=== PATIENT | female | born 1985 | race Caucasian/White ===

== ENCOUNTER 2016-08-05 18:39 | Emergency (ER) | payer MEDICAID ==
[2012-07-26 10:57] VITALS: BMI 26.6
[2016-08-05 19:21] LABS: BASOPHILS 0.3 % (0.0-2.0); HEMATOCRIT 31.7 % (36.0-48.0); IMMATURE GRANULOCYTES 0.4 % (0-5); LYMPHOCYTES 29.6 % (15-50); MCH 32.5 pg (26.0-34.0); MCHC 34.7 g/dL (31.0-37.0); MCV 93.8 fL (80.0-100.0); MEAN PLATELET VOLUME 9.4 fL (7.4-10.4); NEUTROPHILS 63.7 % (40-80); PLATELET COUNT 193 10x3/uL (130-400); RBC 3.38 10x6/uL (4.00-5.40); RDW 12.6 % (11.5-14.5)
[2016-08-05 19:24] LABS: APPEARANCE HAZY (CLEAR); BILIRUBIN NEGATIVE (NEGATIVE); COLOR YELLOW (YELLOW); GLUCOSE NEGATIVE (NEGATIVE); KETONE SMALL mg/dL (NEGATIVE); LEUKOCYTE ESTERASE TRACE (NEGATIVE); NITRITE NEGATIVE (NEGATIVE); PROTEIN NEGATIVE (NEGATIVE); UROBILINOGEN NORMAL (NORMAL)
[2016-08-05 19:31] LABS: BACTERIA MODERATE /hpf (NONE SEEN); EPITHELIAL CELLS 0-5 /hpf (0-5); RED CELLS - URINE 0-5 /hpf (0-5); WHITE CELLS - URINE 0-5 /hpf (0-5)
[2016-08-05 19:31] LABS: ALBUMIN 3.1 g/dL (3.4-5.0); ALKALINE PHOSPHATASE 43 U/L (46-116); ALT (SGPT) 23 U/L (10-68); BILIRUBIN - TOTAL 0.36 mg/dL (0.2-1.3); CALC OSMOLALITY 276 mosm/kg (275-300); CARBON DIOXIDE 27.3 mmol/L (21.0-32.0); CHLORIDE - SERUM 105 mmol/L (98-107); CREATININE - SERUM 0.6 mg/dL (0.6-1.3); GLUCOSE 91 mg/dL (74-106); POTASSIUM - SERUM 3.5 mmol/L (3.5-5.1); PROTEIN - SERUM 6.4 g/dL (6.4-8.2); SODIUM 140 mmol/L (136-145); UREA NITROGEN 8 mg/dL (7-18); eGFR NON AFRICAN AMERICAN > 90 mL/min (90-120)
== END 2016-08-05 21:35 | disposition home or self-care (01) ==
LOC: D.ER 18:39
PROVIDERS: Family Medicine
DX: R10.2 Pelvic and perineal pain (principal); F17.200 Nicotine dependence, unspecified, uncomplicated

== ENCOUNTER → 2016-12-07 09:21 | Outpatient (CLI) | payer MEDICAID ==
[2012-07-26 10:57] VITALS: BMI 26.6
[2016-12-07 10:12] LABS: APPEARANCE HAZY (CLEAR); BILIRUBIN NEGATIVE (NEGATIVE); COLOR YELLOW (YELLOW); GLUCOSE NEGATIVE (NEGATIVE); KETONE NEGATIVE (NEGATIVE); LEUKOCYTE ESTERASE 1+ (NEGATIVE); NITRITE NEGATIVE (NEGATIVE); PROTEIN NEGATIVE (NEGATIVE); UROBILINOGEN NORMAL (NORMAL)
[2016-12-07 10:13] LABS: BACTERIA FEW /hpf (NONE SEEN); MUCUS <1+ /lpf (NONE SEEN); RED CELLS - URINE OCC /hpf (0-5)
== END | disposition home or self-care (01) ==
LOC: D.LDO 09:21
PROVIDERS: Obstetrics & Gynecology
DX: Z34.93 Encounter for supervision of normal pregnancy, unspecified, third trimester (principal); Z3A.35 35 weeks gestation of pregnancy

== ENCOUNTER → 2016-12-15 10:16 | Outpatient (CLI) | payer MEDICAID ==
[2012-07-26 10:57] VITALS: BMI 26.6
== END | disposition home or self-care (01) ==
LOC: D.LDO 10:16
DX: O36.8130 Decreased fetal movements, third trimester, not applicable or unspecified (principal); Z3A.36 36 weeks gestation of pregnancy

== ENCOUNTER → 2016-12-22 09:42 | Outpatient (CLI) | payer MEDICAID ==
[2012-07-26 10:57] VITALS: BMI 26.6
== END | disposition home or self-care (01) ==
LOC: D.LDO 09:42
DX: Z34.93 Encounter for supervision of normal pregnancy, unspecified, third trimester (principal); Z3A.37 37 weeks gestation of pregnancy

== ENCOUNTER → 2016-12-26 09:05 | Outpatient (CLI) | payer MEDICAID ==
[2012-07-26 10:57] VITALS: BMI 26.6
== END | disposition home or self-care (01) ==
LOC: D.LDO 09:05
DX: O36.8130 Decreased fetal movements, third trimester, not applicable or unspecified (principal); Z3A.37 37 weeks gestation of pregnancy

== ENCOUNTER 2016-12-28 07:13 | Inpatient (IN) | payer MEDICAID ==
[~2016-12-28] VITALS: Ht 172.7 cm; Wt 85.5 kg
[2016-12-28 08:13] LABS: UDS - AMPHET NEGATIVE QUAL (NEGATIVE); UDS - BARB NEGATIVE QUAL (NEGATIVE); UDS - BENZO NEGATIVE QUAL (NEGATIVE); UDS - COCAINE NEGATIVE QUAL (NEGATIVE); UDS - METH NEGATIVE QUAL (NEGATIVE); UDS - OPIATE NEGATIVE QUAL (NEGATIVE); UDS - PCP NEGATIVE QUAL (NEGATIVE); UDS - THC NEGATIVE QUAL (NEGATIVE)
[2016-12-28 08:23] LABS: APPEARANCE TURBID (CLEAR); BILIRUBIN NEGATIVE (NEGATIVE); COLOR YELLOW (YELLOW); GLUCOSE NEGATIVE (NEGATIVE); KETONE NEGATIVE (NEGATIVE); LEUKOCYTE ESTERASE 1+ (NEGATIVE); NITRITE NEGATIVE (NEGATIVE); PROTEIN NEGATIVE (NEGATIVE); SPECIFIC GRAVITY 1.015 (1.005-1.020); UROBILINOGEN NORMAL (NORMAL)
[2016-12-28 08:24] LABS: BACTERIA MODERATE /hpf (NONE SEEN); MUCUS >1+ /lpf (NONE SEEN); RED CELLS - URINE RARE /hpf (0-5)
[2016-12-28 09:58] LABS: HEMATOCRIT 32.4 % (36.0-48.0); MCH 31.8 pg (26.0-34.0); MCV 93.6 fL (80.0-100.0); MEAN PLATELET VOLUME 10.3 fL (7.4-10.4); RBC 3.46 10x6/uL (4.00-5.40); RDW 12.6 % (11.5-14.5); WBC 12.2 10x3/uL (4.8-10.8)
[2016-12-28 12:49] VITALS: BP 112/66; Ht 172.7 cm; Wt 85.5 kg
[2016-12-28 19:00] VITALS: BP 115/64
--- NOTE | 2016-12-28 22:19 | NUR ---
PT OFF MONITOR, UP TO BATHROOM. VOIDS LARGE AMOUNT WITH NO CLOTS NOTED. CLEAN GOWN, PANTIES, PERIPADS PROVIDED. PERICARE TEACHING WITH BETADINE AND WATER, WITH RETURN DEMONSTRATION DONE. PT UP TO W/C TO TRANSFER TO ROOM 1257 AT THIS TIME. TRANSPORTED VIA OPEN CRIB PER THIS RN.
--- NOTE | 2016-12-28 22:39 | NUR ---
PT FAMILY TO NURSE DESK REQUESTS SOAP TO SHOWER. SAME PROVIDED. PT CURRENTLY AND DENIES NEEDS AT THIS TIME.
--- NOTE | 2016-12-28 23:14 | NUR ---
INFANT TRANSPORTED VIA OPEN CRIB TO N FOR VS AND BLOOD SUGAR CHECK. PT REQUESTS BE BROUGHT BACK BECKA. ADV PT WOULD DO THE SAME. PT DENIES NEEDS AT THIS TIME.
[2016-12-29] VITALS (7 sets, daily range): BP systolic 111–124; BP diastolic 64–77
--- NOTE | 2016-12-29 00:12 | NUR ---
PERCOCET 5/325X1 TAB AND MOTRIN 600MG X1 TAB GIVEN PER PT REQUEST FOR PAIN RATED 6/10 AT THIS TIME. PLACED IN OPEN CRIB PER THIS RN. PT DENIES FURTHER NEEDS. BED LOW, WHEELS LOCKED, CL IN REACH, SIDE RAILS UP X2.
--- NOTE | 2016-12-29 00:56 | NUR ---
PAIN REASSESSMENT COMPLETE. PT RATES PAIN 6/10 EVEN AFTER MEDICATION. PT REPORTS PAIN IN BACK WELL "PERIOD CRAMPS." ADV PT THAT CRAMPING IS NORMAL AFTER DELIVERY AND WORSENS WITH . PT VERBALIZED UNDERSTANDING. PT SITTING UP IN BED WITH UP ON PILLOWS BONDING. PT DENIES FURTHER NEEDS AT THIS TIME.
--- NOTE | 2016-12-29 02:56 | NUR ---
ROUNDS MADE. PT LYING ON LT SIDE. PT'S DAUGHTER ASLEEP ON BEDSIDE CHAIR. PT'S EYES CLOSED, RESP EVEN & UNLABORED. PT LEFT UNDISTURBED AT THIS TIME.
[2016-12-29 04:31] LABS: BASOPHILS 0.1 % (0-2); HEMATOCRIT 31.9 % (36.0-48.0); HEMOGLOBIN 10.6 g/dL (12-16); IMMATURE GRANULOCYTES 0.6 % (0-5); LYMPHOCYTES 22.2 % (15-50); MCH 31.7 pg (26.0-34.0); MCHC 33.2 g/dL (31.0-37.0); MCV 95.5 fL (80.0-100.0); MEAN PLATELET VOLUME 10.3 fL (7.4-10.4); MONOCYTES 7.2 % (2-11); NEUTROPHILS 68.9 % (40-80); PLATELET COUNT 290 10x3/uL (130-400); RBC 3.34 10x6/uL (4.00-5.40); RDW 12.7 % (11.5-14.5)
--- NOTE | 2016-12-29 04:31 | NUR ---
rounds made. sitting up in bed bonding with infant. pt requests pain medication at this time. informed pt that we are unable to give pain meds prior to surgery. pt verbalized understanding and states "the pain is only about a 2 and tolerable right now anyway." pt denies further needs at this time.
[2016-12-29 04:46] LABS: WBC 16.5 10x3/uL (4.8-10.8)
--- NOTE | 2016-12-29 05:54 | NUR ---
preop meds given per orders. see emar. pre op check list complete and on chart. scd's place to ble.
[2016-12-29 06:16] LABS: RAPID PLASMA REAGIN Non Reactive (Non Reactive)
--- NOTE | 2016-12-29 07:30 | NUR ---
Pt is awake and feeding infant, denies pain or discomfort at this time. Voices no needs for nurse. Will complete assessment when pt returns from having bilateral tubal ligation.
--- NOTE | 2016-12-29 07:50 | NUR ---
Pt off unit to OR by bed with surgery ground crewman mission support.
--- NOTE | 2016-12-29 09:54 | NUR ---
PATIENT IS STILL EXPERIENCING QUITE A BIT OF PAIN. HAVE GIVEN 25 DEMEROL AND 2 DILAUDID. UNABLE TO GET PATIENT COMFORTABLE.
--- NOTE | 2016-12-29 10:00 | NUR ---
Received to room by bed, transfer to bed with assistance. Pt crying in pain that she rates at 8/10. ice pack applied for pain control. Pt states that she has not voided since this am around 0630. Explained that would empty bladder with inandout cath.
--- NOTE | 2016-12-29 10:30 | NUR ---
PAIN MED GIVEN CHARTED ON EMAR, LARGE CRANBERRY JUICE PER PT REQUEST. IN AND OUT CATH AT THIS TIME WITH 850ML DARK, CLEAR URINE NOTED. AFTER BLADDER EMPTIED BUT RATES PAIN AT 4/10 AND IS ABLE TO MOVE SELF UP IN BED AND POSITION FOR COMFORT. ENCOURAGED HER TO GET UP TO VOID WITHIN 2HOURS FROM NOW, IF ASSISTANCE IS NEEDED PLEASE CALL FOR NURSE. INFANT BROUGHT TO ROOM VIA CRIB PER PT REQUEST, SPOUSE AT BEDSIDE, SIDE RAILS UP X 2 WITH CALL LIGHT IN REACH.
--- NOTE | 2016-12-29 11:39 | NUR ---
pt up to br
--- NOTE | 2016-12-29 12:20 | NUR ---
DIET ORDER FOR HERSELF AND GUEST PLACED IN [facility] PER PT REQUEST. RATES PAIN AT 3/10 AND DENIES ANY OTHER NEEDS AT THIS TIME.
--- NOTE | 2016-12-29 13:15 | NUR ---
PT CALLS OUT WITH COMPLAINT OF NAUSEA, STATES SHE DID NOT FEEL LIKE EATING DUE TO THIS. ZOFRAN OFFERED ORDERED, BUT REQUEST PHENERGAN. EXPLAINED THAT DR SALEEM WOULD BE NOTIFIED FOR ORDERS. VERBAL REPORT GIVEN TO DR SALEEM OF PT REQUEST. NEW ORDER RECEIVED FOR PHENERGAN PO EVERY 6HRS NEEDED FOR NAUSEA.
--- NOTE | 2016-12-29 13:20 | NUR ---
REPORT GIVEN TO WOMENS NURSE James ROBERTS RN PER HER REQUEST TO ASSUME CARE OF PT.
--- NOTE | 2016-12-29 14:30 | NUR ---
PT REQUESTED PHENERGAN AND PAIN MED. GIVEN BOTH. STATES HER PAIN IS ABOUT A 6. SHE HAS FAMILY AT BEDSIDE. BED IS LOW, SIDE RAILS UP X 2 AND CALL LIGHT IN REACH.
--- NOTE | 2016-12-29 15:15 | NUR ---
PTS PAIN REASSESSED. SHE STATES THAT HER PAIN HAS NOT GOTTEN ANY BETTER. SHE HAS BEEN UP TO VOID SEVERAL TIMES.
--- NOTE | 2016-12-29 16:41 | NUR ---
PT IS SITTING UP IN BED AND BABY. SHE STATES HE IS DOING WELL SHE OFFERS NO COMPLAINTS.
--- NOTE | 2016-12-29 17:16 | NUR ---
PT IS LYING IN BED. OFFERS NO COMPLAINTS. SHE IS GETTING UP TO VOID WITHOUT DIFFICULTY. SHE IS NO LONGER NAUSEATED. FAMILY AT BEDSIDE. BED IS LOW. SIDE RAILS UP X 2 AND CALL LIGHT IN REACH. VISITORS AT BEDSIDE. IV IS SALINE LOCKED AND PATENT.
--- NOTE | 2016-12-29 18:15 | NUR ---
Pt calls out requesting towels and gown for a shower, these are taken to room. Has family/friends in room at this time, in crib at bedside. Will call when ready to get in to shower so that saline lock can be removed.
--- NOTE | 2016-12-29 19:17 | NUR ---
PT RECEIVED SITTING UP IN BED HOLDING AT THIS TIME. S/L TAKEN OUT PER PT REQUEST DUE TO PAIN. CATHETER TIP INTACT. VSS. PT RATES PAIN 6/10. ADMINISTERED NORCO PO AND MOTRIN PO PER ORDERS AT THIS TIME. HEART RRR. LUNG SOUNDS CLEAR BILATERALLY. BOWEL SOUNDS ACTIVE X4 QUADRENTS. ABDOMEN SOFT WITH TENDERNESS. BAND-AID NOTED TO UMBILICUS NO DRAINAGE NOTED. FUNDUS FIRM AND MIDLINE U/2. LIGHT LOCHIA RUBRA NOTED TO ARUNA PAD. PT STATES LOCHIA HAS BEEN LIGHT TO MODERATE THROUGHOUT THE DAY. PEDAL PULSES EQUAL BILATERALLY. PT STATES SHE IS FIXING TO GET UP TO TAKE A SHOWER AT THIS TIME. DENIES NEEDS. BED LOW. PHONE AND CALL LIGHT IN REACH. SRX2.
--- NOTE | 2016-12-29 20:34 | NUR ---
PT REQUESTS ICE PACK AT THIS TIME. DENIES OTHER NEEDS. BED LOW. PHONE AND CALL LIGHT IN REACH. SRX2.
--- NOTE | 2016-12-29 22:22 | NUR ---
PT LYING IN BED WATCHING TV AT THIS TIME WITH ON CHEST. DENIES NEEDS. BED LOW. PHONE AND CALL LIGHT IN REACH. SRX2.
--- NOTE | 2016-12-29 23:37 | NUR ---
PT RESTING QUIETLY AT THIS TIME WITH EYES CLOSED. RESPIRATIONS EVEN, NON-LABORED. NO ACUTE DISTRESS NOTED AT THIS TIME. BED LOW. PHONE AND CALL LIGHT IN REACH. SRX2.
--- NOTE | 2016-12-30 03:34 | NUR ---
PT SITTING UP IN BED HOLDING AT THIS TIME. NO NEEDS NOTED. BED LOW. PHONE AND CALL LIGHT IN REACH. SRX2.
--- NOTE | 2016-12-30 05:42 | NUR ---
PT REQUESTS COFFEE AT THIS TIME. DENIES OTHER NEEDS. SITTING UP IN BED HOLDING INFANT. BED LOW. PHONE AND CALL LIGHT IN REACH. SRX2.
[2016-12-30 07:15] VITALS: BP 104/66
--- NOTE | 2016-12-30 07:15 | NUR ---
THIS RN TO BEDSIDE. PT CURRENTLY SITTING UP IN BED W/ UP IN ARMS. PAIN ASSESSED. PT REPORTS ABD CRAMPING /. MOTRIN OFFERED. PT ACCEPTS. SEE EMAR. TRANSFERED TO CRIB AT BEDSIDE. SHIFT ASSESSMENT COMPLETED AT THIS TIME. SEE FLOWSHEET. BREATH SOUNCS CL/=,ABD SOFT,NON DISTENDED, LAP INCISION TO UMBILICUS W/BANDAGE. BANDAGE REMOVED FOR INSPECTION. LAP INCISION DRY W/OUT DRAINAGE. FUNDUS FIRM,U/1, SMALL TO MODERATE LOCHIA REPORTED PER PT. PEDAL PULSES PRESENT X 2. +2 PITTING EDEMA NOTED BILATERALLY TO PT'S ANKLES AND FEET. PT REPORTS SHE HAS HAD TROUBLE W/HER LEFT ANKLE AND HAS HAD SWELLING ISSUSES PRIOR TO ADMIT TO L&D. AM SHIFT POC DISCUSSED W/PT. PT VERBALZIES UNDERSTANDING AND IS AGREEABLE. PT HAS ICE WATER AT BEDSIDE. DENIES NEEDING ANYTHING ADDITIONAL TO DRINK AT THIS TIME. TRASH REMOVED FROM ROOM. INFANT PLACED BACK IN PT'S ARMS.
--- NOTE | 2016-12-30 08:00 | NUR ---
THIS RN TO BEDSIDE TO TRANSPORT INFANT VIA CRIB TO [facility] SO DR CUN[place]AM MAY ASSESS . PT'S PAIN AND NEEDS ASSESSED. PT REPORTS MOTRIN IS BEGINGING TO HELP HER ABD CRAMPING. DENIES NEEDS FURTHER PAIN INTERVENTIONS AT THIS TIME. PT REQUEST A FRESH CUP OF COFFEE.
--- NOTE | 2016-12-30 08:26 | NUR ---
PT SERVED FRESH COFFEE W/CREAMER. DENIES FURTHER NEEDS VOICED AT THIS TIME. BED LOW, CALL LIGHT AND PHONE AT PT'S SIDE.
--- NOTE | 2016-12-30 09:07 | NUR ---
ROUNDS MADE. PT SITTING UP IN BED WATCHING TV. PAIN AND NEEDS ASSESSED. PT REQUEST PAIN MEDICATION AT THIS TIME AND APPLE JUICE FOR PT'S DAUGTHER. PERCOCET 5/325MG ONE TAB GIVEN AND APPLE JUICE SERVED. PT DENIES FURTHER NEEDS AT THIS TIME.
--- NOTE | 2016-12-30 09:30 | NUR ---
INFANT TRANSPORTED VIA CRIB TO PT'SOOM PER Laya JURADO RN. ID BANDS VERIFIED PER PROTOCOL. PLACED IN PT'S ARMS FOR NURSING PER Laya JURADO RN
--- NOTE | 2016-12-30 10:00 | NUR ---
ROUNDS MADE. PT SITTING UP IN BED CHANGING 'S DIAPER. PAIN REASSESSED. PT RATES PAIN 3/10. DENIES NEEDS AT THIS TIME.
--- NOTE | 2016-12-30 11:10 | NUR ---
PT RINGS CALL LIGHT REQUEST MENU LINE PHONE #. THIS RN DOES NOT KNOW NUMBER,BUT MENU VIEWED ON LINE AND REPORTED TO PT. NO FURTHER NEEDS VOICED AT THIS TIME. PT DENIES PAIN AT PRESENT.
[2016-12-30 13:10] VITALS: BP 104/66
--- NOTE | 2016-12-30 13:10 | NUR ---
ROUNDS MADE. PT CURRENTLY . PAIN AND NEEDS ASSESSED. PT REPORTS ABD CRAMPING IS BEGINNING TO RETURN, BUT IS TOLERABLE AT THIS TIME. V/S DONE. SEE FLOWSHEET. PT INSTRUCTED TO RING CALL LIGHT AFTER SHE HAS FINISHED NURSING IF SHE WOULD LIKE SOME PAIN MEDICATION. PT IS AGREEBLE.
--- NOTE | 2016-12-30 15:00 | NUR ---
ROUNDS MADE. PT SITTING UP AWAKE IN BED W/INFANT UP IN ARMS. PAIN AND NEEDS ASSESSED. PT RERPORTS ABD PAIN 6/10 W/CRAMPING. PT REQUEST TO RECEIVE BOTH MOTRIN 600MG AND PERCOCET 5/325MG TOGETHER AT THIS TIME. REQUEST CRAMBERRY JUICE TO DRINK. PAIN MEDS GIVEN AND JUICE SERVED. SEE EMAR FOR DOC OF MEDS. NO FURTHER NEEDS VOICED AT THIS TIME.
--- NOTE | 2016-12-30 15:45 | NUR ---
TO PT'S ROOM FOR PAIN REASSESSMENT AND TO OFFER PT TDAP AT DISCHARGE. PT REPORTS ABD PAIN IS BETTER. RATES 3/10. PT CONSENTS TO RECEIVING TDAP AT DISCHARGE. TDAP INFO SHEET PROVIDED FOR PT TO REVIEW. NO NEEDS VOICED AT THIS TIME.
--- NOTE | 2016-12-30 15:59 | NUR ---
PT AMBUALTES TO NURSING DESK TO REQUEST THIS RN NOTIFY DIETARY OF WHAT SHE WOULD LIKE TO EAT FOR DINNER. DIETARY CALLED. [employer] AND [employer]RIES ORDERED. PT AMBULATORY W/OLDER DAUGHTER TO [employer] AT THIS TIME.
--- NOTE | 2016-12-30 17:00 | NUR ---
ROUNDS MADE. PT SITTING UP IN BED TENDING TO . PT DENIES PAIN OR NEEDS AT THIS TIME. PT'S OLDER DAUGTHER IN ROOM TO ASSIST PT.
--- NOTE | 2016-12-30 18:00 | NUR ---
ROUNDS MADE. PT SITTING UP IN BED W/INFANT UP IN ARMS. DENIES PAIN OR NEEDS AT THIS TIME.
--- NOTE | 2016-12-30 19:37 | NUR ---
TDAP VACCINE GIVEN IN LEFT DELTOID. PT INSTRUCTED ON VACCINE AND POSSIBLE SIDE EFFECTS, VERBALIZED UNDERSTANDING, DENIES QUESTIONS AT THIS TIME.
--- NOTE | 2016-12-30 19:43 | NUR ---
DISCHARGE INSTRUCTIONS REVIEWED WITH PT AND S/O. VERBALIZED UNDERSTANDING, DENIES QUESTIONS. INSTRUCTIONS SHEETS GIVEN. PT TAKEN OUT TO FRONT ENTERANCE VIA W/C TRANSPORT.
== END 2016-12-30 20:58 | disposition home or self-care (01) | DRG 774 ==
LOC: D.LDO 07:13 → D.LD 09:05
PROVIDERS: ADMIT Obstetrics & Gynecology
PROC: 10E0XZZ Delivery of Products of Conception, External Approach (ICD-10-PCS; principal; 2016-12-28)
PROC: 0UQMXZZ Repair Vulva, External Approach (ICD-10-PCS; 2016-12-28)
DX: O99.824 Streptococcus B carrier state complicating childbirth (principal); O98.32 Other infections with a predominantly sexual mode of transmission complicating childbirth; A54.24 Gonococcal female pelvic inflammatory disease; A56.8 Sexually transmitted chlamydial infection of other sites; O99.334 Smoking (tobacco) complicating childbirth; O42.92 Full-term premature rupture of membranes, unspecified as to length of time between rupture and onset of labor; O71.82 Other specified trauma to perineum and vulva; O99.284 Endocrine, nutritional and metabolic diseases complicating childbirth; Z3A.38 38 weeks gestation of pregnancy; Z37.0 Single live birth